=== PATIENT | female | born 1990 | race African-American/Black ===

== ENCOUNTER 2023-05-25 08:39 | Outpatient (OUT) | payer BC, SELFPAY ==
[2023-05-25 09:01] LABS: Basophils Absolute Auto 0.1 10^3/uL (0.0-0.1); Basophils Percent Auto 0.9 % (0.2-2.0); Eosinophils Absolute Auto 0.4 10^3/uL (0.0-0.7); Eosinophils Percent Auto 5.1 % (0.9-7.0); Hematocrit 37.4 % (36.0-48.0); Hemoglobin 12.7 g/dL (12.0-16.0); Immature Granulocytes Abs Auto 0.01 10^3/uL (0.00-0.03); Immature Granulocytes Pct Auto 0.1 % (0.0-0.5); Lymphocytes Absolute Auto 2.9 10^3/uL (1.2-3.8); Lymphocytes Percent Auto 40.6 % (20.5-60.0); Mean Corpuscular Hemoglobin 29.5 pg (26.7-34.0); Mean Corpuscular Volume 86.8 fL (81.0-99.0); Mean Platelet Volume 9.1 fL (9.5-13.5); Monocytes Absolute Auto 0.4 10^3/uL (0.3-0.8); Monocytes Percent Auto 6.1 % (1.7-12.0); Neutrophils Absolute Auto 3.3 10^3/uL (1.4-6.5); Neutrophils Percent Auto 47.2 % (43.0-75.0); Platelet Count 337 10^3/uL (150-450); Red Blood Count 4.31 10^6/uL (4.20-5.40); Red Cell Distribution Width 11.8 % (11.0-15.0)
[2023-05-25 09:22] LABS: Estimated Average Glucose 94 mg/dL; Glycohemoglobin A1C 4.9 % (4.5-6.2)
[2023-05-25 09:36] LABS: Alanine Aminotransferase 24 U/L (14-59); Albumin Globulin Ratio 0.9; Albumin Level 3.6 g/dL (3.4-5.0); Alkaline Phosphatase 73 U/L (46-116); Aspartate Amino Transferase 15 U/L (15-37); Bilirubin Total 0.3 mg/dL (0.2-1.0); Calcium 8.6 mg/dL (8.5-10.1); Carbon Dioxide 24.9 mmol/L (21.0-32.0); Chloride 103 mmol/L (98-107); Cholesterol 171 mg/dL (<=200); Estimated GFR (African America >60 (>=60); Estimated GFR (Non-African Ame >60 (>=60); Globulin 4.2 g/dL; Glucose 95 mg/dL (74-106); HDL Cholesterol 84 mg/dL (40-60); Potassium 3.9 mmol/L (3.5-5.1); Sodium 137 mmol/L (136-145); Thyroid Stimulating Hormone 4.274 uIU/mL (0.358-3.740); Total Protein 7.8 g/dL (6.4-8.2); Triglycerides 33 mg/dL (<=150); VLDL CHOLESTEROL 6.6 mg/dL
== END 2023-05-25 08:40 | disposition home or self-care (01) ==
LOC: LAB 08:39
PROVIDERS: PCP Nurse Practitioner; Visit Provider Family Medicine
DX: Z00.00 Encounter for general adult medical examination without abnormal findings (principal); E88.810 Metabolic syndrome
CPT/HCPCS: 36415; 80053; 80061; 83036; 83525; 84443; 85025

== ENCOUNTER 2023-05-25 15:23 | Outpatient (REF) | payer BC, SELFPAY ==
[2023-05-26 11:08] LABS: Insulin 15.6 uIU/mL (2.6-24.9)
== END 2023-05-25 15:24 | disposition home or self-care (01) ==
LOC: LAB 15:23
PROVIDERS: PCP Nurse Practitioner; Visit Provider Nurse Practitioner
DX: Z00.00 Encounter for general adult medical examination without abnormal findings (principal); E88.810 Metabolic syndrome
CPT/HCPCS: 36415; 83525